=== PATIENT | male | born 1980 | race Asian ===

== ENCOUNTER 2019-12-21 20:42 | Inpatient (IN) | payer SELFPAY ==
--- NOTE | ~2019-12-21 | XR_ITS ---
EXAMINATION: XR chest 1V portable DATE: 12/21/2019 21:09 INDICATION: ST elevation myocardial infarction presenting with right chest and arm pain. TECHNIQUE: frontal view of the chest was obtained. COMPARISON: None FINDINGS: The lungs are clear with no focal airspace opacities, pulmonary edema, pleural effusion or pneumothor ax. The cardiomediastinal silhouette is normal. Old healed left clavicle fracture deformity. IMPRESSION: 1. No acute cardiopulmonary disease. Reviewed, dictated and finalized at location A.
[2019-12-21 20:46] VITALS: PULSE 87; RESP 21; TEMP 36.8; O2SAT 100
--- NOTE | 2019-12-21 20:51 | ECG_ITS ---
Measurements Intervals [place] Rate: 89 P: 65 AK: 158 QRS: 37 QRSD: 107 T: 43 QT: 336 QTc: 409 Interpretive Statements SINUS RHYTHM INCOMPLETE RIGHT BUNDLE BRANCH BLOCK INFERIOR ST ELEVATION MYOCARDDIAL INFARCT- ACUTE POSTERIOR INFARCT, ACUTE BASELINE ARTIFACT- V3 ABNORMAL ECG Electronically Signed On 12-22-2019 8:11:47 CDT by Freddy Hartman D.O.
[2019-12-21 20:54] VITALS: PULSE 90
[2019-12-21 20:57] VITALS: BP 164/103; PULSE 93; RESP 12; O2SAT 98
[2019-12-21] MEDS: ASPIRIN 81 MG CHEWABLE TABLET 324 MG PO (21:00)
[2019-12-21 21:02] LABS: Basophils Absolute Auto 0.1 K/mm3 (0.0-0.1); Basophils Percent Auto 0.5 % (0.2-1.2); Eosinophils Absolute Auto 0.4 K/mm3 (0-0.3); Hematocrit 46.1 % (42.0-52.0); Hemoglobin 15.3 g/dL (14.0-18.0); Immature Granulocyte Absolute 0.03 K/mm3 (0.00-0.031); Immature Granulocyte Percent A 0.3 % (0-0.5); Lymphocytes Absolute Auto 4.49 K/mm3 (0.9-3.2); Lymphocytes Percent Auto 40.5 % (18.3-44.2); Mean Corpuscular HGB Conc 33.2 g/dl (32-36); Mean Corpuscular Hemoglobin 27.7 pg (26-34); Mean Corpuscular Volume 83.4 fl (80-100); Mean Platelet Volume 9.9 fl (7.4-10.4); Monocytes Percent Auto 8.6 % (2.6-8.5); Neutrophils Absolute Auto 5.1 K/mm3 (1.3-6.7); Neutrophils Percent Auto 46.1 % (45.5-73.1); Platelet Count Result 232 k/mm3 (150-375); Red Blood Count 5.53 M/mm3 (4.6-6.20); Red Cell Distribution Width 12.5 % (11.5-14.5); White Blood Count 11.1 K/mm3 (4.5-10.0)
--- NOTE | 2019-12-21 21:07 | ED.CHESTPAIN ---
HPI - Chest Pain General Chief Complaint: Chest Pain Stated Complaint: CP Time Seen by Provider: 12/21/19 21:03 History of Present Illness HPI narrative: Patient presents with his nephew for severe chest pain. Started 4 days ago, but has been getting much worse in the last hour. It is on the right lower sterum, 8/. He had diaphoresis, but no nausea, or SOB. He has not been sick otherwise, and denies cough, fever, shortness of breath. He has not traveled recently. He took his blood pressure medication at home, but no aspirin. MD complaint: chest pain Onset (ago): day(s) Timing of current episode: constant Onset: during rest Pain location: right chest Pain radiation: none Severity: severe Pain scale (0-10): 8 Relieving factors: nothing Exacerbating factors: nothing Associated symptoms: diaphoresis Treatment prior to arrival: other (blood pressure medication 20mg) Risk Factors Coronary artery disease risk factors: smoking history, hyperlipidemia and hypertension Related Data Allergies Allergy/AdvReac Type Severity Reaction Status Date / Time No Known Allergies Allergy Verified 12/21/19 21:21 Review of Systems Review of Systems: All systems reviewed & are unremarkable except as noted in HPI and below Constitutional: Constitutional: Reports no additional constitutional complaints, Denies chills, Denies fever(s) and Denies weakness ENT: Reports system reviewed and no additional complaints, except as documented Cardiovascular: Cardiovascular: Reports chest pain Respiratory: Respiratory: Reports no additional respiratory complaints Gastrointestinal: Gastrointestinal: Reports no additional gastrointestinal complaints Musculoskeletal: Musculoskeletal: Reports no additional musculoskeletal complaints Neurologic: Reports system reviewed and no additional complaints, except as documented PMFSH Social History Social History (Updated 12/21/19 @ 21:18 by Danyelle Amador MD) Smoking status: Current every day smoker Tobacco type: cigarettes Alcohol intake: current Substance use: never Gender identity (if verbalized by the patient): Male Exam Const: General: healthy appearing, no acute distress and alert; No diaphoretic Nutritional Appearance: well nourished Orientation/consciousness: patient oriented x3 Limitations: No altered mental status and language barrier HENMT: Head: normal to inspection Eyes: Conjunctivae: conjunctivae normal Pupils: Equal, round and reactive pupils present EOM: EOMs intact bilaterally Neck: Neck: normal visual inspection Chest: Chest palpation & inspection: normal inspection of the chest Resp: Effort & Inspection: normal respiratory effort Auscultation: clear to auscultation bilaterally Cardio: Rate: regular rate Rhythm: regular rhythm : Male General Exam: Yes normal external exam Skin: General skin exam: normal color Neuro: General: patient oriented x3, moves all extremities, no focal motor deficits and CN's II-XI intact bilaterally Speech: normal speech Extrem: General: normal to inspection and no edema Course Reevaluation(s) Reevaluation #1: Taught patient to say chest pain and give the number. He is down to a 4/[address] the landscape laborer. Date: 12/21/19 Time: 21:36 Consultations Consultation #1: Dr. Cuenca called and he requests the EKG to be texted to him before he leaves to come here. I explained it is an inferior STEMI. He is coming in and the landscape laborer has been activated. Date: 12/21/19 Time: 21:10 Vital Signs Vital signs: Vital Signs Temperature 98.2 F 12/21/19 20:46 Pulse Rate 87 12/21/19 20:46 Respiratory Rate 21 H 12/21/19 20:46 Pulse Oximetry 100 12/21/19 20:46 Temperature 98.2 F 12/21/19 20:46 Pulse Rate 85 12/21/19 21:18 Respiratory Rate 18 12/21/19 21:18 Blood Pressure 154/100 H 12/21/19 21:18 Pulse Oximetry 99 12/21/19 21:18 MDM - Chest Pain Lab Data Result diagrams: 12/21/19 20:57 12/20
[2019-12-21 21:12] LABS: Prothrombin Time 12.5 Seconds (11.1-14.7)
[2019-12-21 21:13] LABS: Blood Urea Nitrogen 9 mg/dL (9-20); Calcium 9.7 mg/dL (8.4-10.2); Carbon Dioxide 32 mmol/L (22-30); Chloride 95 mmol/L (98-107); Estimated Glomerular Filt Rate > 60; Glucose 144 mg/dL (75-110); Partial Thromboplastin Time 25.8 SECONDS (22.3-36.8); Potassium 3.6 mmol/L (3.4-5.0); Sodium 137 mmol/L (137-145)
[2019-12-21] MEDS: TICAGRELOR 90 MG TABLET 180 MG PO (21:13)
[2019-12-21] MEDS: HEPARIN SODIUM 5,000 UNITS/ML VIAL 5000 UNITS IV PUSH (21:15)
[2019-12-21] MEDS: ASPIRIN 81 MG CHEWABLE TABLET 324 MG (21:15)
[2019-12-21] MEDS: MORPHINE SULFATE 4 MG/ML INJ (21:15)
[2019-12-21 21:18] VITALS: BP 154/100; PULSE 85; RESP 18; O2SAT 99
[2019-12-21 21:25] LABS: Troponin I 0.015 ng/mL (0.000-0.034)
[2019-12-21 21:35] VITALS: BP 141/88; PULSE 91; RESP 14; O2SAT 98
--- NOTE | 2019-12-21 22:53 | WPDCARDPROC ---
Cardiac Cath Procedure Note Date of procedure:: 12/21/19 Performing physician:: Simon Cuenca MD Indication:: Acute coronary syndrome- inferior ST elevation DC Procedure Procedure note:: EMERGENT CARDIAC CATHETERIZATION AND PRIMARY PERCUTANEOUS CORONARY INTERVENTION REPORT DATE OF PROCEDURE: 12/21/2019 INDICATION FOR PROCEDURE: acute coronary syndrome -inferior ST-elevation myocardial infarction BRIEF CLINICAL HISTORY: 39-year-old male with past medical history of hypertension, dyslipidemia; tobacco abuse presented to [facility] emergency room on 12/21/2019 with 1 week history of intermittent chest pain. Today, patient states that his chest pain got worse and seek medical attention. In the ER, patient's EKG showed sinus rhythm, ST segment elevation in the inferior leads with reciprocal ST depression in the leads V1 to V3, 1 and aVL. Cardiac catheterization lab was activated for primary PCI. Patient was given aspirin, loading dose of ticagrelor 180 mg in the emergency room, and heparin bolus. PROCEDURES PERFORMED: 1. Left heart catheterization- Selective left and right coronary angiogram; left ventriculogram and hemodynamic assessment 2. Percutaneous coronary intervention- A) Balloon angioplasty and stenting of totally occluded distal RCA using 4.0 x 15 mm Biotronik sirolimus eluting stent with good angiographic results and adventism of CORRINE 3 flow; B) Balloon angioplasty and stenting of high-grade stenosis in the mid left circumflex artery using a 3.0 x 22 mm Biotronik sirolimus eluting stent with good angiographic results. 3. Selective right common femoral angiogram and deployment of Angio-Seal hemostatic device 4. Moderate sedation-CPT code 28988 MODERATE SEDATION: Midazolam 2 mg; fentanyl 50 mcg. Start time 2153 , Stop time 2244 ; Total pfhp-bh-[id number] time 49 Minutes; Tiffany Olea RN was trained observer for moderate sedation. ACCESS SITE: Right common femoral artery PROCEDURE NOTE: The patient was emergently brought to the catheterization lab and prepped and draped in a usual sterile manner. After local anesthesia with lidocaine, right common femoral artery access was taken with micropuncture needle followed by insertion of a 6 Albanian sheath. Selective left and right coronary angiogram was performed using 5 Albanian JL4 and 6 Albanian JR4 guide catheter respectively. Orthogonal views were taken. After completion of PCI, a 5 Albanian pigtail catheter was advanced in the LV cavity and was flushed with normal saline. LV pressure measurement was performed. After this, left ventriculogram was performed. The catheter was flushed again, and gradient across the aortic valve was measured on the pullback of the catheter. Selective right common femoral angiogram was performed after PCI followed by successful deployment of Angio-Seal vascular closure device. Patient tolerated procedure well without any immediate procedure related complications. FINDINGS: LEFT MAIN CORONARY: the left main coronary artery is a large caliber vessel, no angiographic significant focal stenosis. The vessel trifurcates into LAD, ramus intermedius and left circumflex branches. LEFT ANTERIOR DESCENDING ARTERY: The LAD is a medium to large caliber vessel in the proximal segment, tapers distally and wraps LV apex. There is a focal 60-70% stenosis at the mid -distal segment. The diagonal branches are small to medium-sized vessel which bifurcates into 2 branches after its origin, without significant focal stenosis. RAMUS INTERMEDIUS: the ramus intermedius is a medium-sized vessel, tortuous in the mid segment, without significant focal stenosis. LEFT CIRCUMFLEX ARTERY: The left circumflex artery is a medium-sized vessel with high-grade, somewhat hazy about 80% stenosis in the mid segment. The vessel essentially continues as OM branch. The main LCX continues in the AV groove. RIGHT CORONARY ARTERY: the right coronary artery is of large size, tortuous
[2019-12-21 23:09] VITALS: BP 144/88; PULSE 77; RESP 14; TEMP 36.6; O2SAT 100
--- NOTE | 2019-12-21 23:11 | PM.IMHP ---
H&P: HPI History of Present Illness Chief complaint: Stemi Narrative: Date of service: 12/21/2019 chief complaint: Chest pain, off and on x1 week HPI:CELESTINE KNIGHT is a 39 year old Botswanan male with hypertension, dyslipidemia, tobacco abuse. Patient speaks Keerthi and little bit of Pat. He does not speak Greek. I was able to gather some medical information using mohegan language. The patient presented to [facility] emergency room on 12/21/2019 with 1 week history of intermittent chest pain. Today, patient states that his chest pain got worse and therefore, came to the ER. he describes his chest pain as dull pain in the right chest, associated with some shortness of breath. He denied any palpitation, dizziness or syncope. He denies any prior cardiac history. In the ER, patient's EKG showed sinus rhythm, ST segment elevation in the inferior leads with reciprocal ST depression in the leads V1 to V3, 1 and aVL. Cardiac catheterization lab was activated for primary PCI. Patient was given aspirin, loading dose of ticagrelor 180 mg in the emergency room, and heparin bolus. Patient's emergent coronary angiogram showed Severe CAD- 100% thrombotic occlusion of distal RCA (infarct-related vessel); high-grade, about 80% stenosis mid LCX; focal, 60-70% stenosis mid-distal LAD. Preserved overall LV systolic function, ejection fraction 65-70% with inferior wall hypokinesis; LVEDP elevated at 26 mmHg. He underwent Multivessel PCI- balloon angioplasty and stenting of totally occluded distal RCA using 4.0 x 15 mm Biotronik sirolimus eluting stent with good angiographic results and episcopal of CORRINE 3 flow; balloon angioplasty and stenting of mid LCX using a 3.0 x 22 mm Biotronik sirolimus eluting stent with good angiographic results. The patient was chest pain free after PCI. He was transferred to ICU in a guarded but hemodynamically stable condition. Review of Systems Constitutional: Constitutional: Denies chills, Denies fatigue, Denies fever(s) and Denies headache(s) Eyes: Eyes: Reports as per HPI, Denies change in vision, Denies loss of vision and Denies eye pain ENT: Reports as per HPI, Reports Normal hearing present, Denies headache(s), Denies lip swelling, Denies epistaxis and Denies sore throat Cardiovascular: Cardiovascular: Reports as per HPI, Reports chest pain, Denies syncope, Denies irregular heart rhythm, Denies lightheadedness and Reports dyspnea Respiratory: Respiratory: Reports as per HPI, Denies cough, Reports dyspnea and Denies wheezing Gastrointestinal: Gastrointestinal: Reports as per HPI, Denies abdominal pain, Denies melena, Denies nausea and Denies vomiting Genitourinary: Genitourinary: Reports as per HPI Musculoskeletal: Musculoskeletal: Reports as per HPI, Denies myalgias, Denies muscle cramps and Denies muscle weakness Integumentary/Breasts: Skin/Breast: Reports as per HPI, Denies pruritus and Denies rash Neurologic: Reports as per HPI, Reports Normal hearing present, Denies behavioral changes, Denies syncope, Denies headache(s) and Denies loss of vision Psychiatric: Psychiatric: Reports as per HPI, Denies anxiety, Denies behavioral changes and Denies depression Endocrine: Endocrine: Reports as per HPI, Denies fatigue, Denies polydipsia and Denies polyuria Hematologic/Lymphatic: Hematologic/Lymphatic: Reports as per HPI, Denies easy bleeding and Denies easy bruising Allergic/Immunologic: Allergic/Immunologic: Reports as per HPI, Denies lip swelling and Denies wheezing PMFSH Past Medical History Medical History (Updated 12/21/19 @ 23:17 by Simon Cuenca MD) Dyslipidemia HTN (hypertension) Surgical History Surgical History (Updated 12/21/19 @ 23:17 by Simon Cuenca MD) No pertinent past surgical history Social History Social History Smoking status: Current every day smoker Tobacco type: cigarettes Alcohol intake: current Substance use:
--- NOTE | 2019-12-21 23:12 | ADMGEN ---
This patient, CELESTINE KNIGHT, was admitted to Intensive Care Unit-10. Patient/family oriented to hospital policies and general routines including ID bracelet, bed and alarms, visiting hours, pain management, procedures, bathroom and other care routines, personal items, smoking policy, room service/diet, and visiting hours. Valuables list has been completed. Information on how to activate the Rapid Response Team has been discussed. Patient/Family are encouraged to report perceived risks to care and to ask questions if they do not understand what they are told or what they should do.
[2019-12-21] MEDS: SODIUM CHLORIDE 0.9% IV 1,000 ML 125 ML IV CONT (23:52)
[2019-12-21] MEDS: ATORVASTATIN 40 MG TABLET 80 MG PO (23:56)
[2019-12-22] VITALS (18 sets, daily range): BP systolic 101–152; BP diastolic 57–89; PULSE 58–85; RESP 12–18; TEMP 36.2–37.1; O2SAT 94–100; BMI 32.1
[2019-12-22 00:51] LABS: Alanine Aminotransferase 36 U/L (4-50); Albumin Level 4.3 g/dL (3.5-5.1); Alkaline Phosphatase 57 U/L (38-126); Aspartate Amino Transferase 137 U/L (17-59); Bilirubin,Total 0.6 mg/dL (0.2-1.3); Blood Urea Nitrogen 7 mg/dL (9-20); Calcium 8.9 mg/dL (8.4-10.2); Carbon Dioxide 30 mmol/L (22-30); Chloride 99 mmol/L (98-107); Cholesterol 238 mg/dL (0-200); Estimated CRCL calculation 146 ml/min; Estimated Glomerular Filt Rate > 60; Glucose 142 mg/dL (75-110); HDL Direct 31 mg/dL; Potassium 3.8 mmol/L (3.4-5.0); Sodium 133 mmol/L (137-145); Triglycerides 107 mg/dL (<150)
[2019-12-22 00:57] LABS: LDL Cholesterol Direct 189 mg/dL
[2019-12-22 02:56] LABS: Basophils Percent Auto 0.3 % (0.2-1.2); Eosinophils Absolute Auto 0.2 K/mm3 (0-0.3); Eosinophils Percent Auto 1.4 % (0-4.4); Hematocrit 42.2 % (42.0-52.0); Immature Granulocyte Absolute 0.03 K/mm3 (0.00-0.031); Immature Granulocyte Percent A 0.2 % (0-0.5); Lymphocytes Absolute Auto 1.94 K/mm3 (0.9-3.2); Lymphocytes Percent Auto 15.2 % (18.3-44.2); Mean Corpuscular HGB Conc 33.2 g/dl (32-36); Mean Corpuscular Hemoglobin 27.6 pg (26-34); Mean Corpuscular Volume 83.1 fl (80-100); Mean Platelet Volume 9.7 fl (7.4-10.4); Monocytes Percent Auto 7.6 % (2.6-8.5); Neutrophils Absolute Auto 9.6 K/mm3 (1.3-6.7); Neutrophils Percent Auto 75.3 % (45.5-73.1); Platelet Count Result 196 k/mm3 (150-375); Red Blood Count 5.08 M/mm3 (4.6-6.20); Red Cell Distribution Width 12.3 % (11.5-14.5); White Blood Count 12.8 K/mm3 (4.5-10.0)
--- NOTE | 2019-12-22 10:09 | PM.PNCARD ---
Progress Note: A&P Assessment and Plan (1) HTN (hypertension): Qualifiers: Hypertension type: unspecified Qualified Code(s): I10 - Essential (primary) hypertension Code(s): I10 - Essential (primary) hypertension Status: Acute (2) ST elevation (STEMI) myocardial infarction: Qualifiers: Involved coronary artery: unspecified coronary artery Qualified Code(s): I21.3 - ST elevation (STEMI) myocardial infarction of unspecified site Code(s): I21.3 - ST elevation (STEMI) myocardial infarction of unspecified site Status: Acute Assessment and Plan: 39-year-old Marshallese male with hypertension, dyslipidemia, tobacco abuse. He presented with 7 day history of intermittent chest pain. EKG in the ER showed ST elevation in the inferior leads with reciprocal ST depression. Emergent cardiac catheterization showed 100% thrombotic occlusion of distal QGH-krvssbg-vjyhmbu vessel; high-grade stenosis in the mid LCX, and focal stenosis in the mid-distal LAD; LVEF 65-70% with inferior wall hypokinesis. Patient is status post primary PCI/ SEMAJ x1 distal RCA; PTCA/ SEMAJ x1 mid LCX. Patient has mild residual chest discomfort. He will be monitored closely, and may consider staged PCI on mid-distal LAD during this hospitalization based on patient's clinical course. Patient may be transferred to IMU. continue current medical regimen including dual antiplatelet therapy with low-dose aspirin and ticagrelor ( for at least 1 year, then aspirin indefinitely as tolerated). Patient states that he will likely face financial problems. If he is unable to afford ticagrelor, then may use clopidogrel ( will need a loading dose of 600 mg x1, followed by 75 mg p.o. daily along with aspirin 325 mg p.o. daily). Consult social sciences instructor /integrated logistics support manager. Continue beta malaika, Axel inhibitor , high-intensity statin. patient's LDL is significantly elevated at 189, target LDL would be less than 70. patient's HbA1c is 7. Will consult hospitalist team for further management. (3) Smoking: Code(s): F17.200 - Nicotine dependence, unspecified, uncomplicated Status: Acute Assessment and Plan: Patient was advised to quit tobacco. He is willing to quit. (4) Dyslipidemia: Code(s): E78.5 - Hyperlipidemia, unspecified Status: Acute Assessment and Plan: high-intensity statin treatment with atorvastatin 80 mg p.o. q.h.s.. Current LDL is 189, target LDL would be less than 70. Patient's lipid panel will need to be monitored closely as an outpatient. Diet and lifestyle modification counseling was done with the patient Subjective Date/time seen: 12/22/19 10:09 Date of service: 12/22/2019 Chief complaint: Chest pain interval history: 39-year-old male with hypertension, dyslipidemia, tobacco abuse came [facility] night with chest pain for about 1 week, found to have inferior ST-elevation AK, underwent primary PCI/ SEMAJ x1 distal RCA; SEMAJ x1 mid LCX. He was later admitted to ICU. Overnight, patient states that his chest pain has improved, although he still has residual discomfort, which he describes as 4/10. He denies dyspnea at rest. Denies palpitation, dizziness or syncope. Exam Const: General: no acute distress, alert and awake HENMT: Head: normocephalic and atraumatic Ears: hearing grossly normal bilaterally and external ears normal General nose exam: Normal external nose present and no epistaxis Face and sinus: normal facial exam and no ecchymosis Mouth: Yes tongue normal and Yes moist mucous membranes Teeth and gingiva: dentition normal Eyes: Conjunctivae: conjunctivae normal Sclera: sclerae normal Pupils: Equal, round and reactive pupils present EOM: EOMs intact bilaterally Neck: Neck: normal visual inspection, supple and no JVD Thyroid: thyroid normal Carotids: normal carotid upstroke Resp: Effort & Inspection: normal respiratory effort and able to speak
[2019-12-22] MEDS: lisinopriL 10 MG TABLET PO (10:22)
[2019-12-22] MEDS: ASPIRIN 81 MG ENTERIC TABLET PO (10:22)
[2019-12-22] MEDS: METOPROLOL TARTRATE 12.5 MG TABLET PO ×2 (10:22→21:38)
[2019-12-22] MEDS: TICAGRELOR 90 MG TABLET PO ×2 (10:23→21:38)
--- NOTE | 2019-12-22 10:51 | ECG_ITS ---
Measurements Intervals [place] Rate: 62 P: 46 MD: 151 QRS: -31 QRSD: 102 T: -42 QT: 375 QTc: 382 Interpretive Statements SINUS RHYTHM INCOMPLETE RIGHT BUNDLE BRANCH BLOCK VOLTAGE CRITERIA FOR LVH INFERIOR INFARCT, PROBABLY RECENT ABNORMAL ECG Electronically Signed On 12-22-2019 12:24:21 CDT by Freddy Hartman D.O.
--- NOTE | 2019-12-22 13:57 | WPDCNINT ---
Assessment and Plan Assessment and plan (1) ST elevation (STEMI) myocardial infarction: Qualifiers: Involved coronary artery: unspecified coronary artery Qualified Code(s): I21.3 - ST elevation (STEMI) myocardial infarction of unspecified site Code(s): I21.3 - ST elevation (STEMI) myocardial infarction of unspecified site Status: Acute Assessment and Plan: patient presented with chest pain, EKG revealed acute inferior ST-elevation [place] status post - PTCA / PCI with balloon angioplasty and stent x1 to distal RCA, balloon angioplasty and stent x1 to mid left circumflex artery. EF 65-70% with inferior wall hypokinesia and LVEDP elevated at 26 mmHg. Patient also has a EF of 60-70% with inferior wall hypokinesis in LVEDP elevated at 26 mmHg. - continue aspirin, Brilinta, beta-malaika, lisinopril, sta - patient does not have a job and money at this time, will have care coordination /social work evaluate the patient help with obtaining medications. - Discussed with Cardiology, patient does have a focal 60-70% stenosis of the mid distal segment of the LAD, Dr. Cuenca stated that they may be able to do a PTCA /PCI and that artery on 12/23/2019 (2) HTN (hypertension): Qualifiers: Hypertension type: unspecified Qualified Code(s): I10 - Essential (primary) hypertension Code(s): I10 - Essential (primary) hypertension Status: Acute Assessment and Plan: Lisinopril and metoprolol as above (3) Dyslipidemia: Code(s): E78.5 - Hyperlipidemia, unspecified Status: Acute Assessment and Plan: continue high-dose status (4) Smoking: Code(s): F17.200 - Nicotine dependence, unspecified, uncomplicated Status: Acute Assessment and Plan: discussed with him cessation of smoking, patient does get it has agreed to it. Additional Plan discussed with patient updated with his condition and plan of care. I answered all questions. Code status: Full code. Critical care time spent: 37 minutes Due to a high probability of clinically significant, life threatening deterioration, the patient required my highest level of preparedness to intervene emergently and I personally spent this critical care time directly and personally managing the patient. This critical care time included obtaining a history; examining the patient; pulse oximetry; ordering and review of studies; arranging urgent treatment with development of a management plan; evaluation of patient's response to treatment; frequent reassessment; and discussions with other providers. It was exclusive of separately billable procedures and treating other patients and teaching time. Please see Assessment and Plan section and the rest of the note for further information on patient assessment and treatment Hand Developer Consult Note Consult date: 12/22/19 Time Seen: 07:02 Reason for consult: ST-elevation AL status post PTCA/PCI with balloon angioplasty and stent x1 to distal RCA, balloon angioplasty and stent x1 to mid left circumflex artery. EF 65-70% with inferior wall hypokinesia and LVEDP was elevated 26 mmHg HPI: Jimbo Sutton is a 39 year old male with past medical history of essential hypertension, dyslipidemia, presented to the ED with complains of intermittent chest pain for 1 week. patient stated that he has been having a intermittent chest pain which has been taking pain medication by the chest pain got worse and he presented to the ED. He described his chest pain as dull, the right side, associated with shortness of breath. Denies any palpitation, dizziness or syncope. He denies any prior cardiac history. In the ER patient's EKG showed sinus rhythm, ST segment elevation in inferior leads with reciprocal ST depression in leads V1 to V3, 1 and aVL. Patient was taken for cardiac catheterization, status post PTCA / PCI with balloon angioplasty and stent x1 to distal RCA, balloon angioplasty and stent x1 to m
--- NOTE | 2019-12-22 16:32 | PM.IMCN ---
Assessment and Plan Assessment and plan (1) ST elevation (STEMI) myocardial infarction: Qualifiers: Involved coronary artery: unspecified coronary artery Qualified Code(s): I21.3 - ST elevation (STEMI) myocardial infarction of unspecified site Code(s): I21.3 - ST elevation (STEMI) myocardial infarction of unspecified site Status: Acute Assessment and Plan: Manage per Cardiology. He is on aspirin, Lipitor, lisinopril and metoprolol. (2) HTN (hypertension): Qualifiers: Hypertension type: unspecified Qualified Code(s): I10 - Essential (primary) hypertension Code(s): I10 - Essential (primary) hypertension Status: Acute Assessment and Plan: He is currently on lisinopril and metoprolol. (3) Elevated blood sugar: Code(s): R73.9 - Hyperglycemia, unspecified Status: Acute Assessment and Plan: Patient sugars have been in the 140s. His A1c was 7.0. 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 May be able to control this with diet. (4) Dyslipidemia: Code(s): E78.5 - Hyperlipidemia, unspecified Status: Acute Assessment and Plan: His on atorvastatin (5) Smoking: Code(s): F17.200 - Nicotine dependence, unspecified, uncomplicated Status: Acute Assessment and Plan: Patient states that he rarely ever smoke cigarettes and he gets them from his friends. 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 The patient speaks very little Moldovan. The patient speaks several other languages. The patient came to the emergency room on 12/21/19 after having intermittent chest pain for 4 days. On the day of admission is pain got worse. Patient was found to have ST elevation. He was sent to the cardiac cath lab technologist for STEMI. His severe coronary artery disease 100% thrombotic occlusion of distal RCA. Had stenting of the distal RCA. Which was a drug-eluting stent. Please see cardiology notes. Hemoglobin A1c is 7.0. Date of consult for Review of Systems Review of Systems: All systems reviewed & are unremarkable except as noted in HPI and below Constitutional: Constitutional: Reports as per HPI and Reports no additional constitutional complaints Eyes: Eyes: Reports as per HPI and Reports no additional eye complaints ENT: Reports system reviewed and no additional complaints, except as documented and Reports Normal hearing present Cardiovascular: Cardiovascular: Reports no additional cardiovascular complaints Respiratory: Respiratory: Reports no additional respiratory complaints and Reports no additional respiratory complaints Gastrointestinal: Gastrointestinal: Reports as per HPI and Reports no additional gastrointestinal complaints Musculoskeletal: Musculoskeletal: Reports no additional musculoskeletal complaints Integumentary/Breasts: Skin/Breast: Reports system reviewed and no additional complaints, except as docu and Reports as per HPI Neurologic: Reports system reviewed and no additional complaints, except as documented, Reports as per HPI and Reports Normal hearing present Psychiatric: Psychiatric: Reports no additional psychiatric complaints and Reports as per HPI Endocrine: Endocrine: Reports no additional endocrine complaints Hematologic/Lymphatic: Hematologic/Lymphatic: Reports no additional hematologic/lymphatic complaints Allergic/Immunologic: Allergic/Immunologic: Reports no additional allergic/immunologic complaints [facility] Past Medical History Medical History (Updated 12/22/19 @ 16:39 by Jennifer Elliott NP) Dyslipidemia HTN (hypertension) Surgical History Surgical History (Updated 12/22/19 @ 16:40 by Jennifer Elliott NP) H/O cardiac catheterization H/O heart artery stent RCA Family History Family Histo
[2019-12-22 16:35] LABS: Glucose Point of Care 159 (65-105)
[2019-12-22 20:47] LABS: Glucose Point of Care 171 (65-105)
[2019-12-22] MEDS: ATORVASTATIN 40 MG TABLET 80 MG PO (21:37)
[2019-12-23] VITALS (12 sets, daily range): BP systolic 95–112; BP diastolic 58–71; PULSE 62–85; RESP 12–20; TEMP 35.8–36.5; O2SAT 97–100; BMI 31.0
[2019-12-23 04:35] LABS: Basophils Percent Auto 0.2 % (0.2-1.2); Eosinophils Absolute Auto 0.3 K/mm3 (0-0.3); Eosinophils Percent Auto 2.2 % (0-4.4); Hematocrit 42.7 % (42.0-52.0); Hemoglobin 14.3 g/dL (14.0-18.0); Immature Granulocyte Absolute 0.05 K/mm3 (0.00-0.031); Immature Granulocyte Percent A 0.4 % (0-0.5); Lymphocytes Absolute Auto 2.55 K/mm3 (0.9-3.2); Lymphocytes Percent Auto 22.3 % (18.3-44.2); Mean Corpuscular HGB Conc 33.5 g/dl (32-36); Mean Corpuscular Hemoglobin 27.6 pg (26-34); Mean Corpuscular Volume 82.4 fl (80-100); Mean Platelet Volume 9.7 fl (7.4-10.4); Monocytes Absolute Auto 1.2 K/mm3 (0.1-0.6); Monocytes Percent Auto 10.1 % (2.6-8.5); Neutrophils Absolute Auto 7.4 K/mm3 (1.3-6.7); Neutrophils Percent Auto 64.8 % (45.5-73.1); Platelet Count Result 238 k/mm3 (150-375); Red Blood Count 5.18 M/mm3 (4.6-6.20); Red Cell Distribution Width 12.4 % (11.5-14.5); White Blood Count 11.4 K/mm3 (4.5-10.0)
[2019-12-23 04:52] LABS: Alanine Aminotransferase 37 U/L (4-50); Albumin Level 4.1 g/dL (3.5-5.1); Alkaline Phosphatase 51 U/L (38-126); Aspartate Amino Transferase 89 U/L (17-59); Blood Urea Nitrogen 10 mg/dL (9-20); Calcium 9.2 mg/dL (8.4-10.2); Carbon Dioxide 30 mmol/L (22-30); Chloride 101 mmol/L (98-107); Estimated CRCL calculation 125 ml/min; Estimated Glomerular Filt Rate > 60; Glucose 144 mg/dL (75-110); Magnesium 2.2 mg/dL (1.6-2.3); Sodium 139 mmol/L (137-145)
[2019-12-23] MEDS: lisinopriL 10 MG TABLET PO (08:16)
[2019-12-23] MEDS: ASPIRIN 81 MG ENTERIC TABLET PO (08:16)
[2019-12-23] MEDS: TICAGRELOR 90 MG TABLET PO ×2 (08:16→17:19)
[2019-12-23 08:37] LABS: Glucose Point of Care 134 (65-105)
--- NOTE | 2019-12-23 09:24 | PM.PNCARD ---
Progress Note: A&P Additional Plan 39-year-old man with premature multivessel coronary disease presenting with acute inferior wall VA. Patient underwent successful emergency PCI to the right coronary artery as well as an unrelated circumflex lesion which was high-grade. Angiographically patient does have a high-grade mid LAD lesion with CORRINE 3 flow in the vessel. He is not having any ischemic chest pain and therefore I would recommend deferring PCI to treat this lesion to 0 later date in the future. Patient was questioning as to why this procedure would not be done during this hospitalization we detailed that discussion through the video traffic worker. The need for compliance with his medical regimen as well as smoking cessation were also discussed. Plan will be for discharge today and then follow up in the office which will probably be a telephone/video visit in 2-3 weeks. At that time elective PCI of his LAD lesion can be scheduled. Abdiel Lancaster MD [facility] Time Spent With Patient Time with patient: 15 - 25 minutes Subjective Date/time seen: Date of service: 12/23/19 09:24 Interval history: Follow-up visit today in 39-year-old man with coronary artery disease presenting 48 hours ago with acute inferior wall myocardial infarction. Patient is at bedrest and is asymptomatic this morning. History is obtained through the video traffic worker as he speaks no Indonesian. Details of Saturday his procedure and his coronary disease who findings were discussed with the patient through the traffic worker he had some questions which were answered satisfactorily. Exam Const: General: comfortable and no acute distress HENMT: Mouth: Yes moist mucous membranes Eyes: Sclera: sclerae normal Pupils: Equal, round and reactive pupils present Neck: Neck: supple and no JVD Thyroid: thyroid normal Other: Normal carotid pulses no bruits Resp: Effort & Inspection: normal respiratory effort Auscultation: clear to auscultation bilaterally Cardio: Rate: regular rate Rhythm: regular rhythm Other: PMI nondisplaced no murmur no gallop no rub GI: Auscultation: normal bowel sounds Skin: General skin exam: normal color Neuro: Cognition (Neuro): normal cognition Extrem: General: normal to inspection Objective Data Vital Signs Vital Signs: Vital Signs - 24 hr 12/22/19 10:00 12/22/19 10:22 12/22/19 12:00 Temperature 36.2 C L Pulse Rate 85 85 60 Respiratory Rate 16 Blood Pressure 124/72 Pulse Oximetry 99 04/14/20 14:00 12/22/19 16:00 12/22/19 18:00 Temperature 37.1 C Pulse Rate 66 76 82 Respiratory Rate 18 Blood Pressure 103/63 Pulse Oximetry 94 12/22/19 19:52 12/22/19 20:00 12/22/19 21:38 Temperature 36.6 C Pulse Rate 71 75 75 Respiratory Rate 18 Blood Pressure 101/57 L Pulse Oximetry 99 12/22/19 22:00 12/23/19 00:00 12/23/19 01:59 Temperature 36.4 C L Pulse Rate 73 65 72 Respiratory Rate 18 Blood Pressure 103/58 L Pulse Oximetry 98 12/23/19 04:00 12/23/19 06:00 12/23/19 07:43 Temperature 36.5 C 35.8 C L Pulse Rate 67 62 74 Respiratory Rate 18 16 Blood Pressure 98/60 L 95/65 L Pulse Oximetry 98 97 Intake/Output Intake/Output: Intake & Output 12/20/19 12/21/19 12/22/19 12/23/19 23:59 23:59 23:59 23:59 Intake Total 2471 440 Output Total 5150 1150 Balance -9443 -406 Meds/Results Medications: Active Medications Generic Name Dose Route Start Last Admin Trade Name Freq PRN Reason Stop Dose Admin Aspirin 81 mg 12/22/19 09:00 12/23/19 08:16 Aspirin Ec PO 81 mg QAM [facility] Administration Atorvastatin Calcium 80 mg 12/21/19 23:45 12/22/19 21:37 Lipitor PO 80 mg DAILY@2100 PAUL Administration Dextrose 12.5 gm 12/22/19 16:28 Dextrose 50% Syringe IV PUSH PRN PRN Hypoglycemia Protocol Glucagon 1 mg 12/22/19 16:28 Glucagon For Inj IM PRN PRN Hypoglycemia Protocol Glucose 15 gm 12/22/19 16:28 Glut
[2019-12-23] MEDS: METOPROLOL SUCCINATE EXT REL 25 MG TABCR PO (10:47)
[2019-12-23 12:11] LABS: Glucose Point of Care 131 (65-105)
--- NOTE | 2019-12-23 12:27 | PM.DS ---
DS: Diagnosis Admitting Diagnosis Admitting Diagnosis: Essential (primary) hypertension Discharge Diagnosis (1) ST elevation (STEMI) myocardial infarction: Qualifiers: Involved coronary artery: unspecified coronary artery Qualified Code(s): I21.3 - ST elevation (STEMI) myocardial infarction of unspecified site Code(s): I21.3 - ST elevation (STEMI) myocardial infarction of unspecified site Status: Acute Assessment and Plan: 12/20 LEFT HEART CATHETERIZATION: 1. Severe CAD- A) 100% thrombotic occlusion of distal RCA (infarct-related vessel); B) high-grade, about 80% stenosis mid LCX; C) focal, 60-70% stenosis mid-distal LAD 2. preserved overall LV systolic function, ejection fraction 65-70% with inferior wall hypokinesis; LVEDP elevated at 26 mmHg. 3. Multivessel PCI- balloon angioplasty and stenting of totally occluded distal RCA using 4.0 x 15 mm Biotronik sirolimus eluting stent with good angiographic results and scientology of CORRINE 3 flow; balloon angioplasty and stenting of mid LCX using a 3.0 x 22 mm Biotronik sirolimus eluting stent with good angiographic results. Continue aspirin, Brillinta Lipitor, lisinopril and metoprolol. (2) HTN (hypertension): Qualifiers: Hypertension type: unspecified Qualified Code(s): I10 - Essential (primary) hypertension Code(s): I10 - Essential (primary) hypertension Status: Acute Assessment and Plan: Continue on lisinopril and metoprolol. (3) Dyslipidemia: Code(s): E78.5 - Hyperlipidemia, unspecified Status: Acute Assessment and Plan: Continue atorvastatin (4) Smoking: Code(s): F17.200 - Nicotine dependence, unspecified, uncomplicated Status: Acute Assessment and Plan: Patient states that he rarely ever smoke cigarettes and he gets them from his friends. He agreed to stop smoking (5) Type 2 diabetes mellitus with hyperglycemia: Qualifiers: Diabetes mellitus technician terminal and repeater insulin use: without technician terminal and repeater use Qualified Code(s): E11.65 - Type 2 diabetes mellitus with hyperglycemia Code(s): E11.65 - Type 2 diabetes mellitus with hyperglycemia Status: Acute Assessment and Plan: Patient met with medical educator Receives sliding scale insulin during hospitalization Metformin extended release 500 mg daily because it discharge DS: Summary Hospital Course Reason for hospitalization: ST-elevation myocardial infarction Hospital Course: Patient had not received medical care in the recent past. He presented with stuttering chest pain. Found to have ST elevation on EKG. Cardiac enzymes elevated. Taking the coronary angiography where culprit lesion was stented. See problem list for details. Patient remained pain-free after procedure. The importance of taking medications as directed especially his antiplatelet drugs were stressed to him. This was done through use of an online emergency management consultant who spoke [place]. Time Spent with Patient Time attestation: Total time spent providing and/or coordinating discharge services: 35 min Exam Narrative: Exam Narrative: HEENT: EOMI, PERRL, sclerae nonicteric, pharyngeal mucosa pink and intact NECK: No JVD CHEST: Clear to auscultation. Normal effort. HEART: NL S1/S2, regular, no murmur ABDOMEN: BS+, soft, nontender, no mass, no bruits EXTREMITIES: No cyanosis, edema, or clubbing NEUROLOGIC: CN intact and symmetric to inspection. MUSCULOSKELETAL: Tone and strength symmetric. PSYCH: Alert. Oriented to person, place, and time. DS: Data Data Completed and Pending Labs on day of discharge: Labs from last 24 hours 12/23/19 12/23/19 12/23/19 12:09 07:37 04:16 WBC RBC Hgb Hct MCV MCH MCHC RDW Plt Count MPV Immature Gran % (Auto) Neut % (Auto) Lymph % (Auto) [place] % (Auto) Eos % (Auto) Baso % (Auto) Lymph # (Auto) [place] # (Auto) Eos # (Auto) Baso # (A
[2019-12-23 18:30] LABS: Glucose Point of Care 240 (65-105)
[2019-12-23 18:30] LABS: Glucose Point of Care 143 (65-105)
== END 2019-12-23 17:41 | disposition home or self-care (01) | DRG 174 ==
LOC: ANHED 21:10 → ANHIMU 12-22 12:48 → ANHICU 12-24 14:00 → ANHIMU 12-24 14:00
PROVIDERS: General Practice; Nurse Practitioner; Admitting Provider Internal Medicine Cardiovascular Disease; Emergency Provider Emergency Medicine; Visit Provider Internal Medicine
PROC: 4A023N7 Measurement of Cardiac Sampling and Pressure, Left Heart, Percutaneous Approach (ICD-10-PCS; CPT 93452; principal; 2019-12-21 21:25)
PROC: 027135Z Dilation of Coronary Artery, Two Arteries with Two Drug-eluting Intraluminal Devices, Percutaneous Approach (ICD-10-PCS; 2019-12-21 21:25)
PROC: 027135Z Dilation of Coronary Artery, Two Arteries with Two Drug-eluting Intraluminal Devices, Percutaneous Approach (ICD-10-PCS; CPT 92928; 2019-12-21 21:25)
PROC: 027135Z Dilation of Coronary Artery, Two Arteries with Two Drug-eluting Intraluminal Devices, Percutaneous Approach (ICD-10-PCS; 2019-12-21 21:25)
DX: I21.19 ST elevation (STEMI) myocardial infarction involving other coronary artery of inferior wall (principal); I10 Essential (primary) hypertension; E78.5 Hyperlipidemia, unspecified; I25.10 Atherosclerotic heart disease of native coronary artery without angina pectoris; F17.200 Nicotine dependence, unspecified, uncomplicated
CPT/HCPCS: 36415; 71045; 80048; 80053; 80061; 83036; 83735; 84443; 84484; 85025; 85610; 85730; 93005; 93458; 96374; 96375; 99291; A9270; C1725; C1760; C1769; C1874; C1887; C1894; C9600; C9606; G0269; J0461; J0583; J1644; J2250; J2270; J2405; J3010; J7030